=== PATIENT | male | born 1955 | race African-American/Black ===

== ENCOUNTER 2019-03-07 16:02 | Inpatient (IN) ==
--- NOTE | 2019-03-07 16:37 | Internal Med History&Physical ---
Medical - H&P: [facility] Patient information: Note initiated : 03/07/19 at 4:34 pm Service Date, if different from initiated Date: [] Patient: Kvng Hensley a 63 y/o M admitted on for hyperkalemia and acute renal failure . Chief Complaint: [] Chief complaint: Weakness, abdominal pain and fatigue History of present illness: Mr. Hensley is a 63 year old M with a known history of chronic kidney disease managed by Dr. Quinteros nephrology. Patient was in baseline state of health until a month prior to presentation started experiencing loss of appetite associated with nausea. Patient also had associated abdominal discomfort along with bloating and associated 3-4 watery diarrhea a day. Over time he got progressively weaker and has not been able to eat or drink much. With worsening symptoms he was advised for gallbladder ultrasound scheduled for today by PCP. However this morning he was so weak and fatigued that he stumbled on the way to the bathroom. He subsequently presented to [facility]. Initial work-up was consistent with hyperkalemia 6.8/acute renal failure creatinine of 3 and hy potension with pressures in 60. Patient was started on hyperkalemia protocol, received crystalloid and subsequently nephrology was consulted. His potassium recheck was higher at 7.8. Emergent HD catheter was placed and subsequently hospitalist service at [facility] was consulted for transferring patient for need of urgent hemodialysis. Patient transferred from [facility] to [facility] via ground ambulance. Signout was obtained from Dr. Fortino Contreras ER physician on phone. At the time of evaluation patient is alert and oriented. He was able to answer most of the questions. He was able to endorse history as above. He denies recent NSAID intake, dysuria, hematuria, weight loss, bloody emesis or bloody stool. He further denies rash, joint pain, headache, photophobia. He does endorse to fever and chills early this morning. He denies sick contacts Review of systems A 10 point review of system was performed and is negative except for one discussed above Medical - H&P: PMH Medical history: DM type II Hypertension Chronic kidney disease stage IIIb History of congestive heart failure-systolic History of atrial fibrillation Status post pacemaker a sensed V paced Morbid obesity Pulmonary hypertension Nonhealing ulcer lower extremity Surgical history: Pacemaker placement Family history: reviewed and not pertinent Drug use: none Alcohol use: none Medical - H&P: Meds Home Medications Medication Instructions Recorded Confirmed Type atorvastatin 20 mg tablet 40 mg PO DAILY tab 05/07/17 03/07/19 History blood sugar diagnostic See Dose Instructions .ROUTE 05/07/17 12/26/18 History .MEDSUPPLY #20 each furosemide 40 mg tablet 80 mg PO QDAY 05/07/17 03/07/19 History hydrocodone 7.5 mg-acetaminophen 1 tab PO Q6H PRN 05/07/17 03/07/19 History 325 mg tablet insulin aspart U-100 100 100 0 unit SUB-Q TID ml 05/07/17 03/07/19 History unit/mL subcutaneous solution insulin detemir U-100 100) 100 40 unit SUB-Q BID ml 05/07/17 03/07/19 History unit/mL subcutaneous solution insulin syringe-needle U-100 1 mL 1 each .ROUTE .MEDSUPPLY #10 each 05/07/17 03/07/19 History 31 gauge x 5/16" spironolactone 50 mg tablet 50 mg PO BID tab 05/07/17 03/07/19 History allopurinol 100 mg tablet 100 mg PO QDAY #30 tab 01/13/19 03/07/19 Rx allopurinol 100 mg tablet See Rx Instructions PO QDAY #30 tab 01/13/19 03/07/19 Rx [facility] [place] 03/07/19 History Apixaban [Eliquis] 5 mg PO BID 03/07/19 03/07/19 History Colchicine 1 tab PO DAILY 03/07/19 03/07/19 History Lisinopril [Zestril] 20 mg PO DAILY 03/07/19 03/07/19 History Allergies Allergy/AdvReac Type Severity Reaction Status Date / Time No Known Drug Allergies Allergy Verified 12/26/18 08:49 Medical - H&P: Exam - Constitutional General appearance: morbidly obese Exam: Fatigued but oriented and alert Head normocephalic Oral cavity dry Eye movement symmetrical No ear nose discharge Neck no lymphadenopathy S1-S2 paced rhythm regular, pacemaker left anterior chest Diminished breath sounds bases Abdomen soft nontender Lower extremity no cyanosis clubbing no joint swelling, bilateral dry excoriated skin with excessively overgrown toenail Skin no suspicious lesion Psych fatigue but cooperative Neuro nonfocal Medical - H&P: Reslt - Labs CBC & Chem 7: 03/08/19 03:36 03/08/19 03:36 Medical - H&P: A/P (1) Acute renal failure Current visit: No Status: Acute * Hypovolemic shock-continue vasopressors to keep map at goal/crystalloid bolus challenges. * Acute renal failure-etiology in question. Likely ATN secondary to volume depletion. Nephrology consulted. * Hyperkalemia not responding to hyperkalemia protocol. 7.8. HD catheter plac ed. Recheck postdialysis * Hypotension secondary to volume depletion. Rule out sepsis. Initial work-up including normal lactic acid/white count. No evidence of infection. * Abdominal pain nausea unclear etiology. Abdominal imaging * History of DM type II-continue sliding scale insulin/CC diet * History of atrial fibrillation -rate controlled. A sensed V paced * History of congestive heart failure. Per echocardiogram 2017 35% EF with dilated cardiomyopathy. Repeat echocardiogram. * Lower extremity ulcer-wound care consult * Full code * Prophylaxis heparin Plan * Inpatient admission * nephrology consult/hemodialysis * Repeat labs postdialysis * Crystalloids and pressors to maintain map at goal * Abdominal imaging * Repeat echocardiogram * Prior medical condition management home meds Time spent on history and physical in excess of 70 minutes. An additional 80 minutes critical care time spent on management of hypovolemic shock/hyperkalemia/reviewing labs imaging and care coordination
[2019-03-07] MEDS ORDERED: DEXTROSE 31 GM ORAL.SUSP PO PRN (16:52)
[2019-03-07] MEDS ORDERED: ACETAMINOPHEN 325 MG TABLET PO PRN (16:52)
[2019-03-07] MEDS ORDERED: ACETAMINOPHEN 650 MG/65 ML BOTTLE IV PRN (16:52)
[2019-03-07] MEDS ORDERED: DEXTROSE 50% 50 ML VIAL IV PRN (16:52)
[2019-03-07] MEDS ORDERED: ONDANSETRON 4 MG/2 ML VIAL IV PRN (16:52)
[2019-03-07] MEDS: 0.9 % SODIUM CHLORIDE 1,000 ML IV SCH (17:28)
[2019-03-07] MEDS: INSULIN LISPRO 1 UNIT/0.01 ML UNIT SQ SCH ×2 (17:32→21:21)
--- NOTE | 2019-03-07 19:01 | Ultrasound Report ---
CLINICAL INFORMATION: ARF COMPARISON: None. FINDINGS: There are multiple stones within the gallbladder. Gallbladder wall is normal thickness is 2 mm. Common bile duct is 5 mm. Pancreas not visualized. Aorta and IVC are unremarkable. Spleen is incompletely imaged but grossly normal. Both kidneys are normal in size, position and configuration: the right is 11 x 5 cm and the left is 11 x 6 cm. Renal echotexture is elevated compatible with mild medical renal disease IMPRESSION: Elevated renal echotexture compatible with mild medical renal disease Cholelithiasis. Interpreted and Authenticated by: Kvng Mcclendon 03/07/19
[2019-03-07 19:42] LABS: Hemoglobin A1C 7.2 % HGB (4.0-6.0)
[2019-03-07] MEDS: NOREPINEPHRINE BITARTRATE 16 MG in 0.9 % SODIUM CHLORIDE 234 ML IV SCH ×2 (20:05→21:07)
[2019-03-07] MEDS: NOREPINEPHRINE BITARTRATE 4 MG/4 ML VIAL IV ONE ×4 (20:10→21:15)
[2019-03-07] MEDS ORDERED: 0.9 % SODIUM CHLORIDE 1,000 ML IV ONE (20:13)
--- NOTE | 2019-03-07 20:34 | Consultation ---
DATE OF CONSULTATION: 03/07/2019 REFERRING PHYSICIAN: Rosalio Garcia MD REASON FOR CONSULTATION: Hyperkalemia. HISTORY OF PRESENT ILLNESS: The patient is a 63-year-old gentleman with known chronic kidney disease, stage III. His serum baseline creatinines have been ranging from 1.2 to 2.0. He presented to the [facility] with nausea, vomiting, and loss of appetite. He also had some abdominal discomfort with bloating associated with 3 to 4 watery bowel movements per day. He gotten progressively weaker and not able to eat or drink. When he was in the emergency room, he was found to be hypotensive with systolic blood pressures in the 60s. His potassium was elevated at 6.8 and he was in acute kidney injury with a serum creatinine of 3.0. After the treatment for hyperkalemia, his potassium went up to 7.8. For that reason, I was called. He had a temporary dialysis catheter placed and sent to [facility] for emergent dialysis. PAST MEDICAL HISTORY: Significant for: 1. Type 2 diabetes, longstanding with all the complications of diabetes. 2. Chronic kidney disease, stage III, baseline creatinine ranging from 1.1 to 1.5. 3. History of chronic congestive heart failure. 4. History of chronic atrial fibrillation. 5. Status post pacemaker placed in the past. 6. Obesity. 7. Pulmonary hypertension. 8. Nonhealing lower extremity ulcers. PAST SURGICAL HISTORY: Pacemaker placement. SOCIAL HISTORY: No history of drug or alcohol use. FAMILY HISTORY: Noncontributory. MEDICATIONS ON ADMISSION: He is on: 1. Atorvastatin 20 mg once daily. 2. Lasix 40 mg 1 tablet daily. 3. Hydrochlorothiazide 25 mg 1 tablet daily. 4. Insulin. 5. Lisinopril 40 mg once daily. 6. Sotalol 50 mg daily. 7. Spironolactone 50 mg daily. 8. Ergocalciferol 50,000 units once daily. 9. Colchicine 0.6 mg daily. 10. Allopurinol 100 mg daily. REVIEW OF SYSTEMS: Ten systems were reviewed and as indicated in the history of present illness. PHYSICAL EXAMINATION: GENERAL: He is arousable, but falls asleep, fatigued. Oriented x2. HEENT: NC/AT. Pupils are reactive to light. Oral cavity appears normal. NECK: Supple. No jugular venous distention. No lymphadenopathy. No thyromegaly. LUNGS: Decreased air entry bilaterally. No rales or rhonchi heard. CARDIAC: S1, S2 heard. No S3, S4. No murmurs. No rubs. ABDOMEN: Soft, slightly distended, positive bowel sounds. No mass, no rebound. EXTREMITIES: Did not show any evidence of edema. Difficult to palpate his dorsalis pedis and posterior tibials. No skin rash or joint swellings noted. NEUROLOGIC: Exam is nonfocal. LABORATORY DATA: The labs from here are still pending, but the labs from [place] showed potassium of 7.8 and a creatinine of 3.0. ASSESSMENT AND PLAN: 1. Hyperkalemia secondary to acute tubular necrosis, spironolactone and lisinopril. Even with the medical therapy, this has not improved. For that reason, urgent hemodialysis will be performed. He will be dialyzed with a potassium of 1.0 and we will recheck it after 3 hours. 2. Acute kidney injury secondary to ATN from hypotension. Whether it is septic or just volume depletion, it is unclear. Most likely septic as his creatinine is elevated. He will not take any fluid during dialysis. 3. Hypertension, now he has hypotension. We will recheck the labs later today and reassess. Than you Dr. Garcia for referring this patient for consultation. I will follow with you. VICKY:[email or web address] Job ID: [id number] Doc ID: [id number] Nash Quinteros MD
[2019-03-07] MEDS ORDERED: 0.9 % SODIUM CHLORIDE 500 ML IV ONE (21:37)
[2019-03-07] MEDS: 0.9 % SODIUM CHLORIDE 10 ML SYRINGE IV SCH (22:19)
[2019-03-07] MEDS: HEPARIN 5,000 UNIT/ML VIAL SQ SCH (22:27)
[2019-03-07] MEDS: DOCUSATE SODIUM 100 MG CAPSULE PO SCH (22:28)
[2019-03-07] MEDS: CYANOCOBALAMIN (VITAMIN B-12) 500 MCG TABLET PO SCH (22:28)
[2019-03-07] MEDS: SENNOSIDES/DOCUSATE SODIUM 1 TAB TABLET PO SCH (22:28)
[2019-03-07] MEDS: MELATONIN 3 MG TABLET PO PRN (22:28)
[2019-03-07] MEDS: 0.9 % SODIUM CHLORIDE 250 ML IV SCH (22:32)
[2019-03-08] MEDS ORDERED: AMIODARONE HCL 200 MG TABLET PO ONE (00:11)
[2019-03-08] MEDS ORDERED: AMIODARONE HCL 200 MG TABLET ONE (00:18)
[2019-03-08] MEDS: 0.9 % SODIUM CHLORIDE 1,000 ML IV SCH ×2 (03:29→13:46)
[2019-03-08 05:51] LABS: Hematocrit 37.5 % (41.0-55.0); Hemoglobin 12.3 g/dL (13.5-16.5); Mean Cell Volume 85.7 fL (80.0-100.0); Mean Corpuscular HGB Conc 32.7 g/dL (31.0-36.0); Mean Platelet Volume 8.5 fL (7.4-10.4); Platelet Count 228 K/mcL (140-440); RBC 4.37 M/mcL (4.50-5.90); Red Cell Distribution Width 14.8 % (11.5-14.5); WBC 7.7 K/mcL (4.5-11.0)
[2019-03-08 06:02] LABS: ALT/SGPT 15 U/l (0-40); AST/SGOT 18 U/l (0-37); Albumin 3.3 gm/dL (3.2-5.2); Albumin/Globulin Ratio 1.2 (1.0-2.3); Alkaline Phosphatase 57 U/L (39-117); Bilirubin,Direct < 0.2 mg/dL (0.0-0.3); Bilirubin,Total 0.6 mg/dL (0.0-1.0); Blood Urea Nitrogen 35 mg/dl (8-23); Calcium 7.8 mg/dl (8.6-10.4); Carbon Dioxide 19 mmol/L (22-30); Chloride 106 mmol/L (96-108); Globulin 2.7 gm/dL (2.2-3.7); Glomerular Filtration Rate 29; Glucose 170 mg/dL (70-105); Lactate Dehydrogenase 163 U/L (94-250); Phosphorous 2.5 mg/dL (2.7-4.5); Triglycerides 97 mg/dl (<150); Uric Acid 1.9 mg/dL (2.5-8.0)
[2019-03-08 07:10] LABS: Eosinophils % (Manual) 4 % (0-7); Lymphocytes % 34 % (15-49); Monocytes % (Manual) 6 % (1-12); Platelet Estimate NORMAL (NORMAL); RBC Morphology NORMAL (NORMAL); Segmented Neutrophils % 56 % (38-78)
[2019-03-08] MEDS: 0.9 % SODIUM CHLORIDE 10 ML SYRINGE IV SCH ×3 (07:47→22:00)
[2019-03-08] MEDS: INSULIN LISPRO 1 UNIT/0.01 ML UNIT SQ SCH ×4 (07:51→20:41)
[2019-03-08] MEDS: CYANOCOBALAMIN (VITAMIN B-12) 500 MCG TABLET PO SCH ×2 (09:20→20:15)
[2019-03-08] MEDS: FOLIC ACID 1 MG TABLET PO SCH (09:20)
[2019-03-08] MEDS: DOCUSATE SODIUM 100 MG CAPSULE PO SCH ×2 (09:20→20:15)
[2019-03-08] MEDS: THIAMINE 100 MG TABLET PO SCH (09:20)
[2019-03-08] MEDS: MULTIVIT,THER IRON,CA,FA & MIN 1 TABLET PO SCH (09:20)
[2019-03-08] MEDS: HEPARIN 5,000 UNIT/ML VIAL SQ SCH (09:20)
[2019-03-08] MEDS: 0.9 % SODIUM CHLORIDE 250 ML IV SCH ×2 (09:32→20:50)
--- NOTE | 2019-03-08 10:43 | Internal Med Progress Note ---
Medical - PN: Subj Patient information: Note initiated : 03/08/19 at 10:40 am Service Date, if different from initiated Date: [] Patient: Kvng Hensley a 63 y/o M admitted on 03/07/19 for hyperkalemia and acute renal failure . Chief Complaint: [] Interval history: Mr. Hensley is a 63 year old M with a known history of chronic kidney disease managed by Dr. Quinteros nephrology. Patient was in baseline state of health until a month prior to presentation started experiencing loss of appetite associated with nausea. Patient also had associated abdominal discomfort along with bloating and associated 3-4 watery diarrhea a day. Over time he got progressively weaker and has not been able to eat or drink much. With wors ening symptoms he was advised for gallbladder ultrasound scheduled for today by PCP. However this morning he was so weak and fatigued that he stumbled on the way to the bathroom. He subsequently presented to [place] [facility]. Initial work-up was consistent with hyperkalemia 6.8/acute renal failure creatinine of 3 and hypotension with pressures in 60. Patient was started on hyperkalemia protocol, received crystalloid and subsequently nephrology was consulted. His potassium recheck was higher at 7.8. Emergent HD catheter was placed and subsequently hospitalist service at [facility] was consulted for transferring patient for need of urgent hemodialysis. Patient transferred from [facility] to [facility] via ground ambulance. Signout was obtained from Dr. Fortino Contreras ER physician on phone. At the time of evaluation patient is alert and oriented. He was able to answer most of the questions. He was able to endorse history as above. He denies recent NSAID intake, dysuria, hematuria, weight loss, bloody emesis or bloody stool. He further denies rash, joint pain, headache, photophobia. He does endorse to fever and chills early this morning. He denies sick contacts 03/08-patient overnight remained on pressors with crystalloid challenges to maintain map at goal. Post hemodialysis potassium improved to 4.8. Satisfactory urine output. Weaning vasopressors. Multiple runs of V. tach last night with spontaneous defibrillator discharge. Creatinine 2.3 BUN 35. Continue monitor renal function. Nephrology on board. - Constitutional Vitals: Vital Signs Temp Pulse Resp BP Pulse Ox 97 F 75 21 107/91 99 03/07/19 23:00 03/08/19 06:01 03/08/19 08:24 03/08/19 08:24 03/08/19 06:01 Period Temp Pulse Resp BP Sys/Rush Pulse Ox Last 24 Hr 97 F-98 F 39-90 13-27 69-178/37-114 85-100 Intake and Output 03/07/19 03/08/19 03/08/19 21:59 05:59 13:59 Intake Total 2023 538 480 Output Total 350 200 400 Balance 1674 338 80 Weight 272 lb 8 oz Intake & Output: Intake & Output 03/07/19 03/08/19 03/08/19 21:59 05:59 13:59 Intake Total 2023 538 480 Output Total 350 200 400 Balance 1674 338 80 Weight 272 lb 8 oz Intake: IV 2023 538 Sodium Chloride 0.9% 1,000 ml @ 2000 Wide Open IV BOLUS ONE Rx#: [id number] Sodium Chloride 0.9% 500 ml @ 500 Wide Open IV BOLUS ONE Rx#: [id number] Levophed 16 mg In Sodium 24 38 Chloride 0.9% 234 ml @ 10 MCG/ MIN 9.375 mls/hr IV Q24H [facility] Rx #:[id number] Oral 480 Output: Void Amount 350 200 400 Hemodialysis UF 0 Other: Meal Breakfast Percent of Meal Consumed 100% Urine Appearance Clear Clear Urine Color Bright Yellow Bright Yellow General appearance: no acute distress Exam: Currently on pressors Alert and oriented Systolics around mid 90s No lymphedema Paced rhythm on cafeteria monitor Medical - PN: Obj Da - Labs CBC & Chem 7: 03/08/19 03:36 03/08/19 03:36 Labs: Abnormal Lab Results 03/08/19 03/08/19 03/07/19 03:36 03:36 18:24 RBC 4.37 L Hgb 12.3 L Hct 37.5 L RDW 14.8 H Carbon Dioxide 19 L BUN 35 H Creatinine 2.3 H Glucose 170 H Hemoglobin A1c 7.2 H Uric Acid 1.9 L Calcium 7.8 L Phosphorus 2.5 L Meds: Medications Acetaminophen (Tylenol) 650 mg PO Q4-6HP PRN; Protocol PRN Reason: Per Pain Protocol/Fever > 101 Cyanocobalamin (Vitamin B-12) 1,000 mcg PO BID [facility] Stop: 03/12/19 09:01 Last Admin: 03/08/19 09:20 Dose: 1,000 mcg Documented by: Dextrose (Dextrose 50%) 0 ml IV UD PRN PRN Reason: Hypoglycemia Diagnostic Test (Pha) (Accu-Chek) 1 each FS ACHS [facility] Last Admin: 03/08/19 07:45 Dose: 1 each Documented by: Docusate Sodium (Colace) 100 mg PO BID [facility] Last Admin: 03/08/19 09:20 Dose: Not Given Documented by: Folic Acid (Folic Acid) 1 mg PO DAILY [facility] Last Admin: 03/08/19 09:20 Dose: 1 mg Documented by: Glucose (Insta-Glucose) 15 gm PO PRN PRN PRN Reason: Hypoglycemia Heparin Sodium (Porcine) (Heparin) 5,000 unit SQ Q12 [facility] Last Admin: 03/08/19 09:20 Dose: 5,000 unit Documented by: Sodium Chloride (Sodium Chloride 0.9%) 1,000 mls @ 100 mls/hr IV .Q10H [facility] Last Admin: 03/08/19 03:29 Dose: 100 mls/hr Documented by: Acetaminophen (Ofirmev) 650 mg in 65 mls @ 130 mls/hr IV Q6HP PRN; Protocol PRN Reason: Per Pain Protocol/Fever > 101 Norepinephrine Bitartrate 16 (mg/ Sodium Chloride) 250 mls @ 9.375 mls/hr IV Q24H [facility]; Protocol Last Titration: 03/08/19 01:31 Dose: 5 mcg/min, 4.688 mls/hr Documented by: Sodium Chloride (Sodium Chloride 0.9%) 250 mls @ 20 mls/hr IV .[id number] [facility] Last Admin: 03/08/19 09:32 Dose: Not Given Documented by: Insulin Human Lispro (Humalog) 0 unit SQ ACHS [facility]; Protocol Last Admin: 03/08/19 07:51 Dose: 1 units Documented by: Iron Carb/Multivit/[place]/Folic Acid (Multivitamin W/Minerals) 1 tab PO DAILY [facility] Last Admin: 03/08/19 09:20 Dose: 1 tab Documented by: Melatonin (Melatonin 3mg Tablet) 3 mg PO HSP PRN PRN Reason: Insomnia Last Admin: 03/07/19 22:28 Dose: 3 mg Documented by: Ondansetron HCl (Zofran) 4 mg IV Q4-6HP PRN; Protocol PRN Reason: Nausea And Vomiting Pneumococcal Polyvalent Vaccine (Pneumovax 23) 0.5 ml IM .ONCE ONE Stop: 03/09/19 10:16 Senna/Docusate Sodium (Senna Plus Tablet) 1 tab PO HS [facility] Last Admin: 03/07/19 22:28 Dose: 1 tab Documented by: Sodium Chloride (Saline Flush) 10 ml IV Q8 [facility] Last Admin: 03/08/19 07:47 Dose: 10 ml Documented by: Thiamine HCl (Vitamin B1) 100 mg PO DAILY [facility] Last Admin: 03/08/19 09:20 Dose: 100 mg Documented by: Medical - PN: A/P - Time Spent With Patient Total time spent is greater than 50% in coordination of care (as documented) at patient's floor/unit and/or counseling patient: Greater than 35 minutes (Critical care time) (1) Acute renal failure Status: Acute Assessment and plan: * Hypovolemic shock-continue crystalloids and vasopressors to keep map at goal. Gradual improvement noted. Improved endorgan dysfunction. Initial work-up including normal lactic acid/white count. No evidence of infection. * Acute renal failure-etiology in question. Likely secondary to volume depletion/ischemic ATN . Ongoing hemodialysis. Nephrology on board. * Life-threatening hyperkalemia-postdialysis potassium down from 7.8-4.8 * Abdominal pain clinically resolved. Abdominal imaging no evidence of acute process. * History of DM type II-continue basal prandial insulin/CC diet * History of atrial fibrillation -rate controlled. A sensed V paced. Anticoagulated on apixaban * Intermittent V. tach status post spontaneous defibrillator discharge. Currently on amiodarone. * History of dilated cardiomyopathy with EF 35%. Repeat echo. hold SERGEY inhibitor/spironolactone until shock resolves. * Lower extremity ulcer-wound care consult * History of gout continue allopurinol/colchicine * Hyperlipidemia continue statin * * Full code * Prophylaxis apixaban Plan * Continue ICU care * Crystalloids and vasopressors * Monitor renal function * Repeat labs postdialysis * Hold spironolactone/SERGEY inhibitor until shock resolves * Await echocardiogram * Prior medical condition management home meds Critical care time spent 35 minutes Current Visit: No Medical - PN: Qual - VTE Deep Vein Thrombosis/Pulmonary Embolism Present on Admission: No
[2019-03-08] MEDS ORDERED: [UNRECOGNIZED DRUG - OTHER] SCH (10:45)
[2019-03-08] MEDS ORDERED: INSULIN SCH (10:45)
[2019-03-08] MEDS: APIXABAN 5 MG TABLET PO SCH (20:15)
[2019-03-08] MEDS: SENNOSIDES/DOCUSATE SODIUM 1 TAB TABLET PO SCH (20:15)
[2019-03-08] MEDS: MELATONIN 3 MG TABLET PO PRN (20:15)
[2019-03-08] MEDS: NOREPINEPHRINE BITARTRATE 16 MG in 0.9 % SODIUM CHLORIDE 234 ML IV SCH (20:38)
[2019-03-08] MEDS: INSULIN GLARGINE, HUMAN 1 UNIT/0.01 ML SQ SCH (20:43)
[2019-03-08] MEDS ORDERED: SPIRONOLACTONE 50 MG PO SCH (21:00)
[2019-03-09] MEDS: 0.9 % SODIUM CHLORIDE 1,000 ML IV SCH ×3 (00:04→20:26)
[2019-03-09] MEDS: 0.9 % SODIUM CHLORIDE 10 ML SYRINGE IV SCH ×4 (06:01→21:33)
[2019-03-09] MEDS: INSULIN LISPRO 1 UNIT/0.01 ML UNIT SQ SCH ×4 (09:00→20:50)
[2019-03-09] MEDS ORDERED: ALLOPURINOL 100 MG TABLET PO SCH (09:00)
[2019-03-09] MEDS: APIXABAN 5 MG TABLET PO SCH ×2 (09:00→20:49)
[2019-03-09] MEDS ORDERED: COLCHICINE PO SCH (09:00)
[2019-03-09] MEDS: DOCUSATE SODIUM 100 MG CAPSULE PO SCH ×2 (09:00→20:51)
[2019-03-09] MEDS ORDERED: LISINOPRIL 20 MG TABLET PO SCH (09:00)
[2019-03-09] MEDS: AMIODARONE HCL 200 MG TABLET PO SCH (09:00)
[2019-03-09] MEDS ORDERED: FUROSEMIDE 40 MG TABLET PO SCH (09:00)
[2019-03-09] MEDS: FOLIC ACID 1 MG TABLET PO SCH (09:00)
[2019-03-09] MEDS: INSULIN GLARGINE, HUMAN 1 UNIT/0.01 ML SQ SCH ×2 (09:01→21:12)
[2019-03-09] MEDS: CYANOCOBALAMIN (VITAMIN B-12) 500 MCG TABLET PO SCH ×2 (09:01→20:51)
[2019-03-09] MEDS: ATORVASTATIN 20 MG TABLET PO SCH (09:01)
[2019-03-09] MEDS: MULTIVIT,THER IRON,CA,FA & MIN 1 TABLET PO SCH (09:01)
[2019-03-09] MEDS: ALLOPURINOL 100 MG TABLET PO SCH (09:02)
[2019-03-09] MEDS: HYDROCODONE/APAP 7.5/325MG TABLET PO PRN ×2 (09:02→16:26)
[2019-03-09] MEDS: THIAMINE 100 MG TABLET PO SCH (09:02)
[2019-03-09] MEDS: 0.9 % SODIUM CHLORIDE 250 ML IV SCH ×2 (09:03→22:50)
[2019-03-09 09:59] LABS: Hematocrit 34.4 % (41.0-55.0); Hemoglobin 11.3 g/dL (13.5-16.5); Mean Corpuscular HGB Conc 32.7 g/dL (31.0-36.0); Mean Platelet Volume 8.5 fL (7.4-10.4); Platelet Count 198 K/mcL (140-440); WBC 6.2 K/mcL (4.5-11.0)
[2019-03-09] MEDS ORDERED: FLU VACC QS2019-20(6MOS UP)/PF 60 MCG/0.5 ML SYRINGE IM ONE (10:00)
[2019-03-09 10:09] LABS: ALT/SGPT 11 U/l (0-40); AST/SGOT 14 U/l (0-37); Albumin 3.5 gm/dL (3.2-5.2); Albumin/Globulin Ratio 1.5 (1.0-2.3); Alkaline Phosphatase 57 U/L (39-117); Bilirubin,Direct < 0.2 mg/dL (0.0-0.3); Bilirubin,Total 0.5 mg/dL (0.0-1.0); Blood Urea Nitrogen 37 mg/dl (8-23); Calcium 7.3 mg/dl (8.6-10.4); Carbon Dioxide 21 mmol/L (22-30); Chloride 110 mmol/L (96-108); Globulin 2.4 gm/dL (2.2-3.7); Glomerular Filtration Rate 37; Glucose 116 mg/dL (70-105); Lactate Dehydrogenase 157 U/L (94-250); Phosphorous 1.5 mg/dL (2.7-4.5); Triglycerides 103 mg/dl (<150); Uric Acid 2.4 mg/dL (2.5-8.0)
[2019-03-09] MEDS ORDERED: PNEUMOCOCCAL 23-VAL P-SAC VAC 0.5 ML SYRINGE IM ONE (10:15)
[2019-03-09 10:29] LABS: Eosinophils % (Manual) 4 % (0-7); Lymphocytes % 33 % (15-49); Monocytes % (Manual) 10 % (1-12); Platelet Estimate NORMAL (NORMAL); RBC Morphology NORMAL (NORMAL); Segmented Neutrophils % 53 % (38-78)
[2019-03-09] MEDS ORDERED: SODIUM POLYSTYRENE SULFONATE 15 GM/60 ML SUSPENSION PO ONE (14:15)
[2019-03-09] MEDS: NOREPINEPHRINE BITARTRATE 16 MG in 0.9 % SODIUM CHLORIDE 234 ML IV SCH (20:26)
--- NOTE | 2019-03-09 20:50 | Internal Med Progress Note ---
Medical - PN: Subj Patient information: Note initiated : 03/09/19 at 8:46 pm Service Date, if different from initiated Date: [] Patient: Kvng Hensley a 63 y/o M admitted on 03/07/19 for hyperkalemia and acute renal failure . Chief Complaint: [] Interval history: Mr. Hensley is a 63 year old M with a known history of chronic kidney disease managed by Dr. Quinteros nephrology. Patient was in baseline state of health until a month prior to presentation started experiencing loss of appetite associated with nausea. Patient also had associated abdominal discomfort along with bloating and associated 3-4 watery diarrhea a day. Over time he got progressively weaker and has not been able to eat or drink much. With worse jossie symptoms he was advised for gallbladder ultrasound scheduled for today by PCP. However this morning he was so weak and fatigued that he stumbled on the way to the bathroom. He subsequently presented to [place]. Initial work-up was consistent with hyperkalemia 6.8/acute renal failure creatinine of 3 and hypotension with pressures in 60. Patient was started on hyperkalemia protocol, received crystalloid and subsequently nephrology was consulted. His potassium recheck was higher at 7.8. Emergent HD catheter was placed and subsequently hospitalist service at [facility] was consulted for transferring patient for need of urgent hemodialysis. Patient transferred from [facility] to [facility] via ground ambulance. Signout was obtained from Dr. Fortino Contreras ER physician on phone. At the time of evaluation patient is alert and oriented. He was able to answer most of the questions. He was able to endorse history as above. He denies recent NSAID intake, dysuria, hematuria, weight loss, bloody emesis or bloody stool. He further denies rash, joint pain, headache, photophobia. He does endorse to fever and chills early this morning. He denies sick contacts 03/08-patient overnight remained on pressors with crystalloid challenges to maintain map at goal. Post hemodialysis potassium improved to 4.8. Satisfactory urine output. Weaning vasopressors. Multiple runs of V. tach last night with spontaneous defibrillator discharge. Creatinine 2.3 BUN 35. Continue monitor renal function. Nephrology on board. 03/09- Doing a lot better. off pressors, Cr stable now down to 1.9. K uptrending at 5.6. Nehrology on board, good urine output. Phosphorus 1.5. No fever chi lls or telemetry events. - Constitutional Vitals: Vital Signs Temp Pulse Resp BP Pulse Ox 97.6 F 75 18 104/72 98 03/09/19 16:01 03/09/19 20:00 03/09/19 20:00 03/09/19 20:00 03/09/19 20:00 Period Temp Pulse Resp BP Sys/Rush Pulse Ox Last 24 Hr 97.6 F-98.2 F 70-77 14-27 88-158/60-142 96-100 Intake and Output 03/09/19 03/09/19 03/09/19 05:59 13:59 21:59 Intake Total 1008 1120 1480 Output Total 500 275 250 Balance 416 751 5278 Intake & Output: Intake & Output 03/09/19 03/09/19 03/09/19 05:59 13:59 21:59 Intake Total 1008 1120 1480 Output Total 500 275 250 Balance 030 647 0736 Intake: Nourishment/Supplement quantity 120 (ml) IV 1008 1000 1000 Sodium Chloride 0.9% 1,000 ml @ 1000 1000 1000 100 mls/hr IV .Q10H [facility] Rx#: [id number] Levophed 16 mg In Sodium 8 Chloride 0.9% 234 ml @ 10 MCG/ MIN 9.375 mls/hr IV Q24H [facility] Rx #:[id number] Oral 120 360 Output: Void Amount 500 275 250 Other: Meal Breakfast Dinner Percent of Meal Consumed 100% 100% Feeding Ability Independent Urine Appearance Clear Clear Urine Color Bright Yellow Bright Yellow Pale Urine Odor Strong Stool Size Moderate Stool Color Brown Green Stool Consistency Soft # Voids 1 # Bowel Movements 1 General appearance: no acute distress Exam: A&O non laobered breathing No Lymphededma CTAB Tele paced rhythm Medical - PN: Obj Da - Labs CBC & Chem 7: 03/10/19 04:00 03/10/19 04:00 Labs: Abnormal Lab Results 03/09/19 03/09/19 03/08/19 07:40 07:40 03:36 RBC 4.00 L Hgb 11.3 L Hct 34.4 L RDW 15.0 H Potassium 5.6 H Chloride 110 H Carbon Dioxide 21 L 19 L Anion Gap 6.0 L BUN 37 H 35 H Creatinine 1.9 H 2.3 H Glucose 116 H 170 H Hemoglobin A1c Uric Acid 2.4 L 1.9 L Calcium 7.3 L 7.8 L Phosphorus 1.5 L 2.5 L Magnesium 1.5 L 03/08/19 03/07/19 03:36 18:24 RBC 4.37 L Hgb 12.3 L Hct 37.5 L RDW 14.8 H Potassium Chloride Carbon Dioxide Anion Gap BUN Creatinine Glucose Hemoglobin A1c 7.2 H Uric Acid Calcium Phosphorus Magnesium Meds: Medications Acetaminophen (Tylenol) 650 mg PO Q4-6HP PRN; Protocol PRN Reason: Per Pain Protocol/Fever > 101 Hydrocodone Bitart/Acetaminophen ([place] 7.5/325mg) 1 tab PO Q6HP PRN; Protocol PRN Reason: Pain Last Admin: 03/09/19 16:26 Dose: 1 tab Documented by: Allopurinol (Zyloprim) 400 mg PO DAILY [facility] Last Admin: 03/09/19 09:02 Dose: 400 mg Documented by: Amiodarone HCl (Cordarone) 200 mg PO [facility] Last Admin: 03/09/19 09:00 Dose: 200 mg Documented by: Apixaban (Eliquis) 5 mg PO BID [facility] Last Admin: 03/09/19 09:00 Dose: 5 mg Documented by: Atorvastatin Calcium (Lipitor) 40 mg PO DAILY [facility] Last Admin: 03/09/19 09:01 Dose: 40 mg Documented by: Cyanocobalamin (Vitamin B-12) 1,000 mcg PO BID [facility] Stop: 03/12/19 09:01 Last Admin: 03/09/19 09:01 Dose: 1,000 mcg Documented by: Dextrose (Dextrose 50%) 0 ml IV UD PRN PRN Reason: Hypoglycemia Diagnostic Test (Pha) (Accu-Chek) 1 each FS ACHS [facility] Last Admin: 03/09/19 20:26 Dose: 1 each Documented by: Docusate Sodium (Colace) 100 mg PO BID [facility] Last Admin: 03/09/19 09:00 Dose: Not Given Documented by: Folic Acid (Folic Acid) 1 mg PO DAILY [facility] Last Admin: 03/09/19 09:00 Dose: 1 mg Documented by: Glucose (Insta-Glucose) 15 gm PO PRN PRN PRN Reason: Hypoglycemia Sodium Chloride (Sodium Chloride 0.9%) 1,000 mls @ 100 mls/hr IV .Q10H [facility] Last Admin: 03/09/19 20:26 Dose: 100 mls/hr Documented by: Acetaminophen (Ofirmev) 650 mg in 65 mls @ 130 mls/hr IV Q6HP PRN; Protocol PRN Reason: Per Pain Protocol/Fever > 101 Norepinephrine Bitartrate 16 (mg/ Sodium Chloride) 250 mls @ 9.375 mls/hr IV Q24H [facility]; Protocol Last Admin: 03/09/19 20:26 Dose: Not Given Documented by: Sodium Chloride (Sodium Chloride 0.9%) 250 mls @ 20 mls/hr IV .[id number] [facility] Last Admin: 03/09/19 09:03 Dose: Not Given Documented by: Insulin Glargine (Lantus) 40 unit SQ BID [facility] Last Admin: 03/09/19 09:01 Dose: 40 units Documented by: Insulin Human Lispro (Humalog) 0 unit SQ ACHS [facility]; Protocol Last Admin: 03/09/19 18:01 Dose: 2 unit Documented by: Iron Carb/Multivit/[employer]/Folic Acid (Multivitamin W/Minerals) 1 tab PO DAILY [facility] Last Admin: 03/09/19 09:01 Dose: 1 tab Documented by: Melatonin (Melatonin 3mg Tablet) 3 mg PO HSP PRN PRN Reason: Insomnia Last Admin: 03/08/19 20:15 Dose: 3 mg Documented by: Ondansetron HCl (Zofran) 4 mg IV Q4-6HP PRN; Protocol PRN Reason: Nausea And Vomiting Senna/Docusate Sodium (Senna Plus Tablet) 1 tab PO HS [facility] Last Admin: 03/08/19 20:15 Dose: 1 tab Documented by: Sodium Chloride (Saline Flush) 10 ml IV Q8 [facility] Last Admin: 03/09/19 14:45 Dose: 10 ml Documented by: Thiamine HCl (Vitamin B1) 100 mg PO DAILY [facility] Last Admin: 03/09/19 09:02 Dose: 100 mg Documented by: Medical - PN: A/P - Time Spent With Patient Total time spent is greater than 50% in coordination of care (as documented) at patient's floor/unit and/or counseling patient: 25 - 35 minutes (1) Acute renal failure Status: Acute Assessment and plan: * Hypovolemic shock-continue crystalloids and vasopressors to keep map at goal. Gradual improvement noted. Improved endorgan dysfunction. Initial work-up including normal lactic acid/white count. No evidence of infection. * Acute renal failure-Improving with stabilization of creatinine downtrending spontaneously from 2.3-1.9. S/p HD 03/08 for hyperkalemia. Nephrology on board. * Hyperkalemia-potassium uptrending and now at 5.6. Nephrology on board. * Abdominal pain clinically resolved. Abdominal imaging no evidence of acute process. * History of DM type II-continue basal prandial insulin/CC diet * History of atrial fibrillation -rate controlled. A sensed V paced. Anticoagulated on apixaban * Intermittent V. tach status post spontaneous defibrillator discharge. Currently on amiodarone. * History of dilated cardiomyopathy with EF 35%. Repeat echo EF 30%. hold SERGEY inhibitor/spironolactone until shock resolves. * Lower extremity ulcer-wound care consult * History of gout continue allopurinol/colchicine * Hyperlipidemia continue statin * Full code * Prophylaxis apixaban Plan * Repeat a.m. labs * Hold spironolactone/SERGEY inhibitor * Hyperkalemia management per nephrology * Continue wound care * Prior medical condition management home meds Critical care time spent 35 minutes Current Visit: No Medical - PN: Qual - VTE Deep Vein Thrombosis/Pulmonary Embolism Present on Admission: No
[2019-03-09] MEDS: SENNOSIDES/DOCUSATE SODIUM 1 TAB TABLET PO SCH (20:51)
[2019-03-10] MEDS: 0.9 % SODIUM CHLORIDE 1,000 ML IV SCH ×4 (05:03→23:47)
[2019-03-10] MEDS: 0.9 % SODIUM CHLORIDE 10 ML SYRINGE IV SCH ×3 (05:04→21:48)
[2019-03-10 05:51] LABS: Hematocrit 34.3 % (41.0-55.0); Hemoglobin 11.3 g/dL (13.5-16.5); Mean Cell Volume 86.1 fL (80.0-100.0); Mean Corpuscular HGB Conc 32.9 g/dL (31.0-36.0); Mean Platelet Volume 8.4 fL (7.4-10.4); Platelet Count 200 K/mcL (140-440); RBC 3.99 M/mcL (4.50-5.90); Red Cell Distribution Width 15.2 % (11.5-14.5); WBC 6.2 K/mcL (4.5-11.0)
[2019-03-10] MEDS: HYDROCODONE/APAP 7.5/325MG TABLET PO PRN ×3 (05:57→16:18)
[2019-03-10 07:15] LABS: ALT/SGPT 12 U/l (0-40); AST/SGOT 15 U/l (0-37); Albumin 3.5 gm/dL (3.2-5.2); Albumin/Globulin Ratio 1.1 (1.0-2.3); Alkaline Phosphatase 63 U/L (39-117); Bilirubin,Direct < 0.2 mg/dL (0.0-0.3); Bilirubin,Total 0.4 mg/dL (0.0-1.0); Blood Urea Nitrogen 35 mg/dl (8-23); Calcium 7.2 mg/dl (8.6-10.4); Carbon Dioxide 19 mmol/L (22-30); Chloride 111 mmol/L (96-108); Globulin 3.1 gm/dL (2.2-3.7); Glomerular Filtration Rate 42; Glucose 95 mg/dL (70-105); Lactate Dehydrogenase 183 U/L (94-250); Phosphorous 2.2 mg/dL (2.7-4.5); Triglycerides 85 mg/dl (<150); Uric Acid 2.5 mg/dL (2.5-8.0)
[2019-03-10] MEDS ORDERED: fentaNYL 100 MCG/2 ML VIAL IV PRN (07:33)
[2019-03-10 09:37] LABS: Eosinophils % (Manual) 6 % (0-7); Lymphocytes % 21 % (15-49); Monocytes % (Manual) 13 % (1-12); Nucleated Red Blood Cells 1 % (0-0); Platelet Estimate NORMAL (NORMAL); RBC Morphology NORMAL (NORMAL); Segmented Neutrophils % 60 % (38-78)
[2019-03-10] MEDS: INSULIN LISPRO 1 UNIT/0.01 ML UNIT SQ SCH ×4 (10:05→20:37)
[2019-03-10] MEDS: DOCUSATE SODIUM 100 MG CAPSULE PO SCH ×2 (10:06→20:24)
[2019-03-10] MEDS: INSULIN GLARGINE, HUMAN 1 UNIT/0.01 ML SQ SCH ×2 (10:06→20:33)
[2019-03-10] MEDS: AMIODARONE HCL 200 MG TABLET PO SCH (10:06)
[2019-03-10] MEDS: FOLIC ACID 1 MG TABLET PO SCH (10:06)
[2019-03-10] MEDS: APIXABAN 5 MG TABLET PO SCH ×2 (10:06→20:04)
[2019-03-10] MEDS: MULTIVIT,THER IRON,CA,FA & MIN 1 TABLET PO SCH (10:07)
[2019-03-10] MEDS: THIAMINE 100 MG TABLET PO SCH (10:07)
[2019-03-10] MEDS: CYANOCOBALAMIN (VITAMIN B-12) 500 MCG TABLET PO SCH ×2 (10:07→20:02)
[2019-03-10] MEDS: ATORVASTATIN 20 MG TABLET PO SCH (10:07)
[2019-03-10] MEDS: ALLOPURINOL 100 MG TABLET PO SCH (10:08)
--- NOTE | 2019-03-10 10:26 | Internal Med Progress Note ---
Medical - PN: Subj Patient information: Note initiated : 03/10/19 at 10:23 am Service Date, if different from initiated Date: [] Patient: Kvng Hensley a 63 y/o M admitted on 03/07/19 for hyperkalemia and acute renal failure . Chief Complaint: [] Interval history: Mr. Hensley is a 63 year old M with a known history of chronic kidney disease managed by Dr. Quinteros nephrology. Patient was in baseline state of health until a month prior to presentation started experiencing loss of appetite associated with nausea. Patient also had associated abdominal discomfort along with bloating and associated 3-4 watery diarrhea a day. Over time he got progressively weaker and has not been able to eat or drink much. With wors ening symptoms he was advised for gallbladder ultrasound scheduled for today by PCP. However this morning he was so weak and fatigued that he stumbled on the way to the bathroom. He subsequently presented to [place] [facility]. Initial work-up was consistent with hyperkalemia 6.8/acute renal failure creatinine of 3 and hypotension with pressures in 60. Patient was started on hyperkalemia protocol, received crystalloid and subsequently nephrology was consulted. His potassium recheck was higher at 7.8. Emergent HD catheter was placed and subsequently hospitalist service at [facility] was consulted for transferring patient for need of urgent hemodialysis. Patient transferred from [facility] to [facility] via ground ambulance. Signout was obtained from Dr. Fortino Contreras ER physician on phone. At the time of evaluation patient is alert and oriented. He was able to answer most of the questions. He was able to endorse history as above. He denies recent NSAID intake, dysuria, hematuria, weight loss, bloody emesis or bloody stool. He further denies rash, joint pain, headache, photophobia. He does endorse to fever and chills early this morning. He denies sick contacts 03/08-patient overnight remained on pressors with crystalloid challenges to maintain map at goal. Post hemodialysis potassium improved to 4.8. Satisfactory urine output. Weaning vasopressors. Multiple runs of V. tach last night with spontaneous defibrillator discharge. Creatinine 2.3 BUN 35. Continue monitor renal function. Nephrology on board. 03/09- Doing a lot better. off pressors, Cr stable now down to 1.9. K uptrending at 5.6. Nehrology on board, good urine output. Phosphorus 1.5. No fever ch ills or telemetry events. 03/10-patient complains of severe nausea after Kayexalate administration for hyperkalemia. Potassium down to 5.4. Creatinine improving to 1.7. Complains of nausea. Systolics around 90s but off pressors. Ongoing physical therapy. Is slightly lightheaded. Complains of right knee pain 8 out of 10. Tolerating diet. No family at bedside - Constitutional Vitals: Vital Signs Temp Pulse Resp BP Pulse Ox 97.8 F 75 18 116/91 96 03/10/19 08:01 03/10/19 04:00 03/10/19 08:08 03/10/19 08:01 03/10/19 04:00 Period Temp Pulse Resp BP Sys/Rush Pulse Ox Last 24 Hr 97.6 F-98.4 F 72-77 14-24 94-164/65-130 96-100 Intake and Output 03/09/19 03/10/19 03/10/19 21:59 05:59 13:59 Intake Total 1480 1063 Output Total 450 175 350 Balance 1030 -175 713 Weight 292 lb 4.8 oz Intake & Output: Intake & Output 03/09/19 03/10/19 03/10/19 21:59 05:59 13:59 Intake Total 1480 1063 Output Total 450 175 350 Balance 1030 -175 713 Weight 292 lb 4.8 oz Intake: Nourishment/Supplement quantity 120 (ml) IV 1000 1063 Sodium Chloride 0.9% 1,000 ml @ 1000 998 100 mls/hr IV .Q10H [facility] Rx#: [id number] Oral 360 Output: Urine Catheter Amount 350 Void Amount 450 175 Other: Meal Dinner Percent of Meal Consumed 100% Feeding Ability Independent Urine Appearance Clear Clear Clear Urine Color Bright Yellow Bright Yellow Bright Yellow Urine Odor Normal General appearance: no acute distress Exam: Right knee pain on passive motion Anxious but is alert and oriented Nonlabored breathing No telemetry events except for paced rhythm Medical - PN: Obj Da - Labs CBC & Chem 7: 03/10/19 04:00 03/10/19 04:00 Labs: Abnormal Lab Results 03/10/19 03/10/19 03/09/19 04:00 04:00 07:40 RBC 3.99 L Hgb 11.3 L Hct 34.3 L RDW 15.2 H Monocytes % (Manual) 13 H Nucleated RBCs 1 H Potassium 5.4 H 5.6 H Chloride 111 H 110 H Carbon Dioxide 19 L 21 L Anion Gap 6.0 L BUN 35 H 37 H Creatinine 1.7 H 1.9 H Glucose 116 H Hemoglobin A1c Uric Acid 2.4 L Calcium 7.2 L 7.3 L Phosphorus 2.2 L 1.5 L Magnesium 1.5 L 03/09/19 03/08/19 03/08/19 07:40 03:36 03:36 RBC 4.00 L 4.37 L Hgb 11.3 L 12.3 L Hct 34.4 L 37.5 L RDW 15.0 H 14.8 H Monocytes % (Manual) Nucleated RBCs Potassium Chloride Carbon Dioxide 19 L Anion Gap BUN 35 H Creatinine 2.3 H Glucose 170 H Hemoglobin A1c Uric Acid 1.9 L Calcium 7.8 L Phosphorus 2.5 L Magnesium 03/07/19 18:24 RBC Hgb Hct RDW Monocytes % (Manual) Nucleated RBCs Potassium Chloride Carbon Dioxide Anion Gap BUN Creatinine Glucose Hemoglobin A1c 7.2 H Uric Acid Calcium Phosphorus Magnesium Meds: Medications Acetaminophen (Tylenol) 650 mg PO Q4-6HP PRN; Protocol PRN Reason: Per Pain Protocol/Fever > 101 Hydrocodone Bitart/Acetaminophen ([place] 7.5/325mg) 1 tab PO Q6HP PRN; Protocol PRN Reason: Pain Last Admin: 03/10/19 05:57 Dose: 1 tab Documented by: Allopurinol (Zyloprim) 400 mg PO DAILY [facility] Last Admin: 03/10/19 10:08 Dose: 400 mg Documented by: Amiodarone HCl (Cordarone) 200 mg PO [facility] Last Admin: 03/10/19 10:06 Dose: 200 mg Documented by: Apixaban (Eliquis) 5 mg PO BID [facility] Last Admin: 03/10/19 10:06 Dose: 5 mg Documented by: Atorvastatin Calcium (Lipitor) 40 mg PO DAILY [facility] Last Admin: 03/10/19 10:07 Dose: 40 mg Documented by: Cyanocobalamin (Vitamin B-12) 1,000 mcg PO BID [facility] Stop: 03/12/19 09:01 Last Admin: 03/10/19 10:07 Dose: 1,000 mcg Documented by: Dextrose (Dextrose 50%) 0 ml IV UD PRN PRN Reason: Hypoglycemia Diagnostic Test (Pha) (Accu-Chek) 1 each FS ACHS [facility] Last Admin: 03/10/19 10:05 Dose: 1 each Documented by: Docusate Sodium (Colace) 100 mg PO BID [facility] Last Admin: 03/10/19 10:06 Dose: Not Given Documented by: Fentanyl (Sublimaze) 25 mcg IV Q4HP PRN; Protocol PRN Reason: PAIN LEVEL > 6 Stop: 03/14/19 07:32 Last Admin: 03/10/19 08:05 Dose: 25 mcg Documented by: Folic Acid (Folic Acid) 1 mg PO DAILY [facility] Last Admin: 03/10/19 10:06 Dose: 1 mg Documented by: Glucose (Insta-Glucose) 15 gm PO PRN PRN PRN Reason: Hypoglycemia Sodium Chloride (Sodium Chloride 0.9%) 1,000 mls @ 100 mls/hr IV .Q10H [facility] Last Infusion: 03/10/19 06:25 Dose: 0 mls/hr Documented by: Acetaminophen (Ofirmev) 650 mg in 65 mls @ 130 mls/hr IV Q6HP PRN; Protocol PRN Reason: Per Pain Protocol/Fever > 101 Last Infusion: 03/10/19 07:10 Dose: Infused Documented by: Norepinephrine Bitartrate 16 (mg/ Sodium Chloride) 250 mls @ 9.375 mls/hr IV Q24H [facility]; Protocol Last Admin: 03/09/19 20:26 Dose: Not Given Documented by: Sodium Chloride (Sodium Chloride 0.9%) 250 mls @ 20 mls/hr IV .[id number] [facility] Last Admin: 03/09/19 22:50 Dose: Not Given Documented by: Insulin Glargine (Lantus) 40 unit SQ BID [facility] Last Admin: 03/10/19 10:06 Dose: 40 units Documented by: Insulin Human Lispro (Humalog) [address] [facility]; Protocol Last Admin: 03/10/19 10:05 Dose: Not Given Documented by: Iron Carb/Multivit/[place]/Folic Acid (Multivitamin W/Minerals) 1 tab PO DAILY [facility] Last Admin: 03/10/19 10:07 Dose: 1 tab Documented by: Melatonin (Melatonin 3mg Tablet) 3 mg PO HSP PRN PRN Reason: Insomnia Last Admin: 03/08/19 20:15 Dose: 3 mg Documented by: Ondansetron HCl (Zofran) 4 mg IV Q4-6HP PRN; Protocol PRN Reason: Nausea And Vomiting Last Admin: 03/09/19 21:31 Dose: 4 mg Documented by: Senna/Docusate Sodium (Senna Plus Tablet) 1 tab PO HS [facility] Last Admin: 03/09/19 20:51 Dose: Not Given Documented by: Sodium Chloride (Saline Flush) 10 ml IV Q8 [facility] Last Admin: 03/10/19 05:04 Dose: 10 ml Documented by: Thiamine HCl (Vitamin B1) 100 mg PO DAILY [facility] Last Admin: 03/10/19 10:07 Dose: 100 mg Documented by: Medical - PN: A/P - Time Spent With Patient Total time spent is greater than 50% in coordination of care (as documented) at patient's floor/unit and/or counseling patient: 25 - 35 minutes (1) Acute renal failure Status: Acute Assessment and plan: * Hypovolemic shock-continue crystalloids and vasopressors to keep map at goal. Gradual improvement noted. Improved endorgan dysfunction. Initial work-up including normal lactic acid/white count. No evidence of infection. * Acute renal failure-nephrology on board. Creatinine down from 2.3-1.9->1.7. S/p HD 03/08 for hyperkalemia. * Hyperkalemia-potassium downtrending post Kayexalate from 5.6-5.4. Nephrology on board * Abdominal pain clinically resolved. Abdominal imaging no evidence of acute process. * History of DM type II-continue basal prandial insulin/CC diet * History of atrial fibrillation -rate controlled. On amiodarone. A sensed V paced. Anticoagulated on apixaban * Intermittent V. tach status post spontaneous defibrillator discharge. Currently on amiodarone. * History of dilated cardiomyopathy with EF 35%. Repeat echo EF 30%. hold SERGEY inhibitor/spironolactone until shock resolves. * Lower extremity ulcer-wound care consult * History of gout continue allopurinol/colchicine * Hyperlipidemia continue statin * Full code * Prophylaxis apixaban Plan * Transfer to telemetry * Repeat a.m. labs * Continue holding spironolactone/SERGEY inhibitor * Renal issues management per nephrology * Continue wound care * Prior medical condition management home meds Current Visit: No Medical - PN: Qual - VTE Deep Vein Thrombosis/Pulmonary Embolism Present on Admission: No
[2019-03-10] MEDS: 0.9 % SODIUM CHLORIDE 250 ML IV SCH (10:30)
[2019-03-10] MEDS ORDERED: 0.9 % SODIUM CHLORIDE 250 ML IV SCH (10:39)
[2019-03-10] MEDS ORDERED: DEXTROSE 31 GM ORAL.SUSP PO PRN (10:39)
[2019-03-10] MEDS ORDERED: ACETAMINOPHEN 325 MG TABLET PO PRN (10:39)
[2019-03-10] MEDS ORDERED: ACETAMINOPHEN 650 MG/65 ML BOTTLE IV PRN (10:39)
[2019-03-10] MEDS ORDERED: ONDANSETRON 4 MG/2 ML VIAL IV PRN (10:39)
[2019-03-10] MEDS ORDERED: DEXTROSE 50% 50 ML VIAL IV PRN (10:39)
--- NOTE | 2019-03-10 11:48 | Nephrology Progress Note ---
Subjective Patient information: Note initiated : 03/10/19 at 11:45 am Service Date, if different from initiated Date: [] Patient: Kvng Hensley 63 y/o M admitted on 03/07/19 for hyperkalemia and acute renal failure . Chief Complaint: [] He is feeling better. His right knee hurts. Having a gout flare up. Objective - Vital Signs Vital signs: Vital Signs Temp Pulse Resp BP BP Pulse Ox 03/10/19 08:08 18 03/10/19 08:01 97.8 F 24 H 116/91 03/10/19 07:01 15 94/67 03/10/19 06:02 17 105/70 03/10/19 05:02 18 164/130 03/10/19 04:01 22 104/65 03/10/19 04:00 98.4 F 75 14 104/65 96 03/10/19 03:00 14 112/95 03/10/19 02:00 22 116/96 03/10/19 01:01 14 108/76 03/10/19 00:01 17 101/88 03/10/19 00:00 73 20 101/88 96 03/09/19 23:35 96 03/09/19 23:01 20 105/74 03/09/19 22:01 21 104/78 03/09/19 21:01 21 106/69 03/09/19 20:01 14 104/72 03/09/19 20:00 75 18 104/72 98 03/09/19 19:11 77 16 107/67 96 03/09/19 19:02 14 107/67 03/09/19 17:01 21 113/88 03/09/19 16:07 16 03/09/19 16:01 97.6 F 16 114/91 100 03/09/19 14:25 18 03/09/19 13:19 98/74 Intake and Output 03/09/19 03/10/19 03/10/19 21:59 05:59 13:59 Intake Total 1480 1063 Output Total 450 175 350 Balance 1030 -175 713 Intake: Nourishment/Supplement quantity 120 (ml) IV 1000 1063 Sodium Chloride 0.9% 1,000 ml @ 1000 998 100 mls/hr IV .Q10H [facility] Rx#: [id number] Oral 360 Output: Urine Catheter Amount 350 Void Amount 450 175 Other: Meal Dinner Percent of Meal Consumed 100% Feeding Ability Independent Urine Appearance Clear Clear Clear Urine Color Bright Yellow Bright Yellow Bright Yellow Urine Odor Normal Weight 292 lb 4.8 oz Intake & Output: Intake & Output 03/09/19 03/10/19 03/10/19 21:59 05:59 13:59 Intake Total 1480 1063 Output Total 450 175 350 Balance 1030 -175 713 Weight 292 lb 4.8 oz Intake: Nourishment/Supplement quantity 120 (ml) IV 1000 1063 Sodium Chloride 0.9% 1,000 ml @ 1000 998 100 mls/hr IV .Q10H [facility] Rx#: [id number] Oral 360 Output: Urine Catheter Amount 350 Void Amount 450 175 Other: Meal Dinner Percent of Meal Consumed 100% Feeding Ability Independent Urine Appearance Clear Clear Clear Urine Color Bright Yellow Bright Yellow Bright Yellow Urine Odor Normal - General Appearance General appearance: well-developed, well-nourished EENT: ATNC Neck: no JVD Respiratory: no kyphosis Cardiology: mid-systolic murmur Gastrointestinal: normoactive bowel sounds Integumentary: no rash Neurologic: no focal deficit - Lab 03/10/19 04:00 03/10/19 04:00 Most recent lab results Calcium 7.2 mg/dl (8.6-10.4) L 03/10/19 04:00 Phosphorus 2.2 mg/dL (2.7-4.5) L 03/10/19 04:00 Magnesium 1.6 mg/dL (1.6-2.5) 03/10/19 04:00 Assessment and Plan (1) Acute renal failure Status: Acute Comment: KENDY, secondary to ATN. Had hypotension. Now getting better. Hyperkalemia. Improved. Hypotension, getting better. Qualifiers: Acute renal failure type: with acute tubular necrosis Qualified Code(s): N17.0 - Acute kidney failure with tubular necrosis
[2019-03-10] MEDS: fentaNYL 100 MCG/2 ML VIAL IV PRN ×2 (13:27→19:09)
[2019-03-10] MEDS ORDERED: predniSONE 20 MG TABLET PO ONE (14:36)
--- NOTE | 2019-03-10 16:51 | XRay Report ---
CLINICAL INFORMATION: History of gout. Recurrent knee joint effusions TECHNIQUE: Informed consent was obtained. Routine ChloraPrep skin cleansing. 1% lidocaine injected subcutaneously and deep. An 18-gauge straight needle was placed in the right knee joint. A lateral approach was used. AP portable image demonstrates appropriate anatomic position. 30 mL mildly bloody fluid was removed. This fluid was not purulent. Fluid was sent for laboratory studies as ordered by the clinical service. IMPRESSION: 1. Right knee joint aspiration 2. 30 mL mildly bloody, nonpurulent fluid removed Interpreted and Authenticated by: Kvng Prabhakar 03/10/19
[2019-03-10 17:41] LABS: Appearance,Synovial Fluid BLOODY; Color,Synovial Fluid RED; Nucleated Cells,Synovial Fld 2956 /cumm
[2019-03-10 18:12] LABS: Lymphocytes,Synovial Fluid 8 %; Neutrophils,Synovial Fluid 73 % (0-25); Other Cells,Synovial Fluid 19 %
[2019-03-10] MEDS ORDERED: NOREPINEPHRINE BITARTRATE 16 MG in 0.9 % SODIUM CHLORIDE 234 ML IV PRN (20:15)
[2019-03-10] MEDS: SENNOSIDES/DOCUSATE SODIUM 1 TAB TABLET PO SCH (20:24)
[2019-03-10] MEDS ORDERED: MELATONIN 3 MG TABLET PO PRN (21:00)
[2019-03-11] MEDS: 0.9 % SODIUM CHLORIDE 10 ML SYRINGE IV SCH ×3 (05:08→21:10)
[2019-03-11] MEDS: INSULIN GLARGINE, HUMAN 1 UNIT/0.01 ML SQ SCH ×2 (08:15→21:07)
[2019-03-11] MEDS: INSULIN LISPRO 1 UNIT/0.01 ML UNIT SQ SCH ×4 (08:17→21:07)
[2019-03-11 09:06] LABS: Hematocrit 33.2 % (41.0-55.0); Hemoglobin 10.9 g/dL (13.5-16.5); Mean Cell Volume 84.9 fL (80.0-100.0); Mean Corpuscular HGB Conc 32.9 g/dL (31.0-36.0); Platelet Count 196 K/mcL (140-440); RBC 3.91 M/mcL (4.50-5.90); Red Cell Distribution Width 15.2 % (11.5-14.5); WBC 6.5 K/mcL (4.5-11.0)
[2019-03-11 09:21] LABS: ALT/SGPT 10 U/l (0-40); AST/SGOT 17 U/l (0-37); Albumin 3.4 gm/dL (3.2-5.2); Albumin/Globulin Ratio 1.1 (1.0-2.3); Alkaline Phosphatase 66 U/L (39-117); Bilirubin,Direct < 0.2 mg/dL (0.0-0.3); Bilirubin,Total 0.3 mg/dL (0.0-1.0); Blood Urea Nitrogen 37 mg/dl (8-23); Carbon Dioxide 17 mmol/L (22-30); Chloride 109 mmol/L (96-108); Globulin 3.2 gm/dL (2.2-3.7); Glomerular Filtration Rate 45; Glucose 187 mg/dL (70-105); Lactate Dehydrogenase 195 U/L (94-250); Phosphorous 2.4 mg/dL (2.7-4.5); Triglycerides 44 mg/dl (<150); Uric Acid 2.5 mg/dL (2.5-8.0)
--- NOTE | 2019-03-11 09:32 | Nephrology Progress Note ---
Subjective Patient information: Note initiated : 03/11/19 at 9:30 am Service Date, if different from initiated Date: [] Patient: Kvng Hensley 63 y/o M admitted on 03/07/19 for hyperkalemia and acute renal failure . Chief Complaint: [] Feels better. Had knee tapped and it feels better as well. Objective - Vital Signs Vital signs: Vital Signs Temp Pulse Pulse Resp BP BP BP 03/11/19 08:00 97.4 F 73 16 115/79 03/11/19 02:50 97.7 F 78 14 106/64 03/10/19 23:49 98.0 F 85 14 130/80 03/10/19 19:17 75 03/10/19 18:47 98.6 F 86 12 101/63 03/10/19 16:00 97.9 F 86 86 16 135/70 03/10/19 11:57 97.5 F 18 132/108 Pulse Ox 03/11/19 08:00 98 03/11/19 02:50 94 03/10/19 23:49 97 03/10/19 19:17 03/10/19 18:47 94 03/10/19 16:00 96 03/10/19 11:57 98 Intake and Output 03/10/19 03/11/19 03/11/19 21:59 05:59 13:59 Intake Total 1200 Output Total 125 350 125 Balance -125 850 -125 Intake: IV 1000 Sodium Chloride 0.9% 1,000 ml @ 1000 100 mls/hr IV .Q10H [facility] Rx#: [id number] Oral 200 Output: Void Amount 125 350 125 Other: Meal jello, spencer crackers (1 pack) Percent of Meal Consumed 100% Feeding Ability Independent Urine Appearance Clear Clear Clear Urine Color Bright Yellow Bright Yellow Bright Yellow Urine Odor Strong Normal Normal Weight 299 lb Intake & Output: Intake & Output 03/10/19 03/11/19 03/11/19 21:59 05:59 13:59 Intake Total 1200 Output Total 125 350 125 Balance -125 850 -125 Weight 299 lb Intake: IV 1000 Sodium Chloride 0.9% 1,000 ml @ 1000 100 mls/hr IV .Q10H [facility] Rx#: [id number] Oral 200 Output: Void Amount 125 350 125 Other: Meal jello, spencer crackers (1 pack) Percent of Meal Consumed 100% Feeding Ability Independent Urine Appearance Clear Clear Clear Urine Color Bright Yellow Bright Yellow Bright Yellow Urine Odor Strong Normal Normal - General Appearance General appearance: well-developed, well-nourished EENT: ATNC Neck: no JVD Respiratory: no kyphosis Cardiology: diastolic murmur, edema Gastrointestinal: normoactive bowel sounds - Lab 03/11/19 07:13 03/11/19 07:13 Most recent lab results Calcium 7.0 mg/dl (8.6-10.4) L 03/11/19 07:13 Phosphorus 2.4 mg/dL (2.7-4.5) L 03/11/19 07:13 Magnesium 1.5 mg/dL (1.6-2.5) L 03/11/19 07:13 Assessment and Plan (1) Acute renal failure Status: Acute Comment: KENDY, secondary to ATN. Had hypotension. Now getting better. Hyperkalemia. Worse again today. Will give lasix 20mg iv q 12. Hypotension, better. Qualifiers: Acute renal failure type: with acute tubular necrosis Qualified Code(s): N17.0 - Acute kidney failure with tubular necrosis
[2019-03-11] MEDS ORDERED: SODIUM POLYSTYRENE SULFONATE 15 GM/60 ML SUSPENSION PO ONE (09:33)
[2019-03-11 09:40] LABS: POC Blood Urea Nitrogen 41 mg/dl (8-23); POC CO2 14 mmol/L (22-30); POC Calcium, Ionized 0.88 mmol/L (1.16-1.32); POC Chloride 116 mmol/L (96-108); POC Creatinine 1.7 mg/dl (0.7-1.2); POC Glucose, Random 224 mg/dL (70-105); POC Potassium 5.8 mmol/L (3.3-5.1); POC Sodium 138 mmol/L (133-145)
[2019-03-11] MEDS: DOCUSATE SODIUM 100 MG CAPSULE PO SCH ×2 (09:40→21:08)
[2019-03-11] MEDS: MULTIVIT,THER IRON,CA,FA & MIN 1 TABLET PO SCH (09:40)
[2019-03-11] MEDS: predniSONE 20 MG TABLET PO SCH (09:41)
[2019-03-11] MEDS: ATORVASTATIN 20 MG TABLET PO SCH (09:41)
[2019-03-11] MEDS: AMIODARONE HCL 200 MG TABLET PO SCH (09:42)
[2019-03-11] MEDS: THIAMINE 100 MG TABLET PO SCH (09:42)
[2019-03-11] MEDS: APIXABAN 5 MG TABLET PO SCH ×2 (09:43→21:08)
[2019-03-11] MEDS: CYANOCOBALAMIN (VITAMIN B-12) 500 MCG TABLET PO SCH ×2 (09:43→21:08)
[2019-03-11] MEDS: ALLOPURINOL 100 MG TABLET PO SCH (09:43)
[2019-03-11 09:44] LABS: Lymphocytes % 5 % (15-49); Monocytes % (Manual) 3 % (1-12); Platelet Estimate NORMAL (NORMAL); RBC Morphology NORMAL (NORMAL); Reactive Lymphocytes 1 % (0-2); Segmented Neutrophils % 91 % (38-78)
[2019-03-11] MEDS: FOLIC ACID 1 MG TABLET PO SCH (09:44)
[2019-03-11] MEDS: HYDROCODONE/APAP 7.5/325MG TABLET PO PRN ×2 (09:44→18:49)
[2019-03-11] MEDS: 0.9 % SODIUM CHLORIDE 1,000 ML IV SCH (10:04)
[2019-03-11] MEDS: FUROSEMIDE 20 MG/2 ML VIAL IV SCH ×2 (10:06→15:57)
[2019-03-11] MEDS: Sodium Zirconium Cyclosilicate [Lokelma] 10 gm Packet PO SCH ×2 (12:32→21:14)
--- NOTE | 2019-03-11 13:33 | Internal Med Progress Note ---
Medical - PN: Subj Patient information: Note initiated : 03/11/19 at 1:31 pm Service Date, if different from initiated Date: [] Patient: Kvng Hensley a 63 y/o M admitted on 03/07/19 for hyperkalemia and acute renal failure . Chief Complaint: [] Interval history: Mr. Hensley is a 63 year old M with a known history of chronic kidney disease managed by Dr. Quinteros nephrology. Patient was in baseline state of health until a month prior to presentation started experiencing loss of appetite associated with nausea. Patient also had associated abdominal discomfort along with bloating and associated 3-4 watery diarrhea a day. Over time he got progressively weaker and has not been able to eat or drink much. With worse jossie symptoms he was advised for gallbladder ultrasound scheduled for today by PCP. However this morning he was so weak and fatigued that he stumbled on the way to the bathroom. He subsequently presented to [facility]. Initial work-up was consistent with hyperkalemia 6.8/acute renal failure creatinine of 3 and hypotension with pressures in 60. Patient was started on hyperkalemia protocol, received crystalloid and subsequently nephrology was consulted. His potassium recheck was higher at 7.8. Emergent HD catheter was placed and subsequently hospitalist service at [facility] was consulted for transferring patient for need of urgent hemodialysis. Patient transferred from [facility] to [facility] via ground ambulance. Signout was obtained from Dr. Fortino Contreras ER physician on phone. At the time of evaluation patient is alert and oriented. He was able to answer most of the questions. He was able to endorse history as above. He denies recent NSAID intake, dysuria, hematuria, weight loss, bloody emesis or bloody stool. He further denies rash, joint pain, headache, photophobia. He does endorse to fever and chills early this morning. He denies sick contacts 03/08-patient overnight remained on pressors with crystalloid challenges to maintain map at goal. Post hemodialysis potassium improved to 4.8. Satisfactory urine output. Weaning vasopressors. Multiple runs of V. tach last night with spontaneous defibrillator discharge. Creatinine 2.3 BUN 35. Continue monitor renal function. Nephrology on board. 03/09- Doing a lot better. off pressors, Cr stable now down to 1.9. K uptrending at 5.6. Nehrology on board, good urine output. Phosphorus 1.5. No fever chi lls or telemetry events. 03/10-patient complains of severe nausea after Kayexalate administration for hyperkalemia. Potassium down to 5.4. Creatinine improving to 1.7. Complains of nausea. Systolics around 90s but off pressors. Ongoing physical therapy. Is slightly lightheaded. Complains of right knee pain 8 out of 10. Tolerating diet. No family at bedside 03/11-patient doing well. No overnight events. Creatinine downtrending however potassium up to 6.1. Resin exchange binder for hyperkalemia as per nephrology. Systolic stable. Diuresing well. Creatinine at 1.7 near baseline. Acidosis being managed by nephrology. Anticipate discharge in 24 to 48 hours pending improvement in renal function/potassium and HD catheter removal - Constitutional Vitals: Vital Signs Temp Pulse Resp BP Pulse Ox 97.8 F 70 16 107/73 95 03/11/19 11:45 03/11/19 11:45 03/11/19 11:45 03/11/19 11:45 03/11/19 11:45 Period Temp Pulse Resp BP Sys/Rush Pulse Ox Last 24 Hr 97.4 F-98.6 F 70-86 12-16 101-135/63-80 94-98 Intake and Output 03/10/19 03/11/19 03/11/19 21:59 05:59 13:59 Intake Total 1200 2085 Output Total 522 317 8189 Balance -125 850 960 Weight 299 lb Intake & Output: Intake & Output 03/10/19 03/11/19 03/11/19 21:59 05:59 13:59 Intake Total 1200 2085 Output Total 773 754 6320 Balance -125 850 960 Weight 299 lb Intake: IV 1000 1000 Sodium Chloride 0.9% 1,000 ml @ 1000 1000 100 mls/hr IV .Q10H [facility] Rx#: [id number] Oral 200 1085 Output: Void Amount 792 132 5567 Other: Meal jello, spencer crackers (1 pack) Lunch Percent of Meal Consumed 100% 100% Feeding Ability Independent Independent Urine Appearance Clear Clear Clear Urine Color Bright Yellow Bright Yellow Pale Urine Odor Strong Normal Strong General appearance: no acute distress Exam: Alert oriented Nonlabored breathing No anxiety No lymphedema No telemetry events except for paced rhythm Medical - PN: Obj Da - Labs CBC & Chem 7: 03/11/19 07:13 03/11/19 07:13 Labs: Abnormal Lab Results 03/11/19 03/11/19 03/11/19 09:29 07:13 07:13 RBC 3.91 L Hgb 10.9 L Hct 33.2 L POC Hct 35.0 L RDW 15.2 H Seg Neutrophils % 91 H Lymphocytes % 5 L Monocytes % (Manual) Nucleated RBCs POC Potassium 5.8 H Potassium 6.1 H* POC Chloride 116 H Chloride 109 H Carbon Dioxide 17 L POC Total CO2 14 L Anion Gap POC BUN 41 H BUN 37 H Creatinine 1.6 H POC Creatinine 1.7 H Glucose 187 H POC Glucose 224 H Uric Acid Calcium 7.0 L POC WB Ioniz Calcium 0.88 L Phosphorus 2.4 L Magnesium 1.5 L Synovial Neutrophils 03/10/19 03/10/19 03/10/19 16:35 04:00 04:00 RBC 3.99 L Hgb 11.3 L Hct 34.3 L POC Hct RDW 15.2 H Seg Neutrophils % Lymphocytes % Monocytes % (Manual) 13 H Nucleated RBCs 1 H POC Potassium Potassium 5.4 H POC Chloride Chloride 111 H Carbon Dioxide 19 L POC Total CO2 Anion Gap POC BUN BUN 35 H Creatinine 1.7 H POC Creatinine Glucose POC Glucose Uric Acid Calcium 7.2 L POC WB Ioniz Calcium Phosphorus 2.2 L Magnesium Synovial Neutrophils 73 H 03/09/19 03/09/19 07:40 07:40 RBC 4.00 L Hgb 11.3 L Hct 34.4 L POC Hct RDW 15.0 H Seg Neutrophils % Lymphocytes % Monocytes % (Manual) Nucleated RBCs POC Potassium Potassium 5.6 H POC Chloride Chloride 110 H Carbon Dioxide 21 L POC Total CO2 Anion Gap 6.0 L POC BUN BUN 37 H Creatinine 1.9 H POC Creatinine Glucose 116 H POC Glucose Uric Acid 2.4 L Calcium 7.3 L POC WB Ioniz Calcium Phosphorus 1.5 L Magnesium 1.5 L Synovial Neutrophils Meds: Medications Acetaminophen (Tylenol) 650 mg PO Q4-6HP PRN; Protocol PRN Reason: Per Pain Protocol/Fever > 101 Hydrocodone Bitart/Acetaminophen ([place] 7.5/325mg) 1 tab PO Q6HP PRN; Protocol PRN Reason: Pain Last Admin: 10/22/19 09:44 Dose: 1 tab Documented by: Allopurinol (Zyloprim) 400 mg PO DAILY [facility] Last Admin: 03/11/19 09:43 Dose: 400 mg Documented by: Amiodarone HCl (Cordarone) 200 mg PO [facility] Last Admin: 03/11/19 09:42 Dose: 200 mg Documented by: Apixaban (Eliquis) 5 mg PO BID [facility] Last Admin: 03/11/19 09:43 Dose: 5 mg Documented by: Atorvastatin Calcium (Lipitor) 40 mg PO DAILY [facility] Last Admin: 03/11/19 09:41 Dose: 40 mg Documented by: Cyanocobalamin (Vitamin B-12) 1,000 mcg PO BID [facility] Stop: 03/12/19 09:01 Last Admin: 03/11/19 09:43 Dose: 1,000 mcg Documented by: Dextrose (Dextrose 50%) 0 ml IV UD PRN PRN Reason: Hypoglycemia Diagnostic Test (Pha) (Accu-Chek) 1 each FS ACHS [facility] Last Admin: 03/11/19 11:45 Dose: 1 each Documented by: Docusate Sodium (Colace) 100 mg PO BID [facility] Last Admin: 03/11/19 09:40 Dose: 100 mg Documented by: Fentanyl (Sublimaze) 25 mcg IV Q4HP PRN; Protocol PRN Reason: PAIN LEVEL > 6 Stop: 03/14/19 07:32 Last Admin: 03/10/19 19:09 Dose: 0.25 mg Documented by: Folic Acid (Folic Acid) 1 mg PO DAILY [facility] Last Admin: 03/11/19 09:44 Dose: 1 mg Documented by: Furosemide (Lasix) 20 mg IV BIDD [facility] Last Admin: 03/11/19 10:06 Dose: 20 mg Documented by: Glucose (Insta-Glucose) 15 gm PO PRN PRN PRN Reason: Hypoglycemia Norepinephrine Bitartrate 16 (mg/ Sodium Chloride) 250 mls @ 9.375 mls/hr IV Q24HP PRN; Protocol PRN Reason: TITRATE TO KEEP MAP > 65 Sodium Chloride (Sodium Chloride 0.9%) 1,000 mls @ 100 mls/hr IV .Q10H [facility] Last Admin: 03/11/19 10:04 Dose: 100 mls/hr Documented by: Acetaminophen (Ofirmev) 650 mg in 65 mls @ 130 mls/hr IV Q6HP PRN; Protocol PRN Reason: Per Pain Protocol/Fever > 101 Insulin Glargine (Lantus) 40 unit SQ BID [facility] Last Admin: 03/11/19 08:15 Dose: 40 units Documented by: Insulin Human Lispro (Humalog) 0 unit SQ ACHS [facility]; Protocol Last Admin: 03/11/19 11:58 Dose: 2 units Documented by: Iron Carb/Multivit/Pantry Worker/Folic Acid (Multivitamin W/Minerals) 1 tab PO DAILY [facility] Last Admin: 03/11/19 09:40 Dose: 1 tab Documented by: Melatonin (Melatonin 3mg Tablet) 3 mg PO HSP PRN PRN Reason: Insomnia Last Admin: 03/10/19 20:04 Dose: 3 mg Documented by: Sodium Zirconium Cyclosilicate [ Lokelma] 10 Gm Packet 1 dose PO BID [facility] Stop: 03/11/19 21:01 Last Admin: 03/11/19 12:32 Dose: 1 dose Documented by: Ondansetron HCl (Zofran) 4 mg IV Q4-6HP PRN; Protocol PRN Reason: Nausea And Vomiting Prednisone (Prednisone) 40 mg PO [facility] Last Admin: 03/11/19 09:41 Dose: 40 mg Documented by: Senna/Docusate Sodium (Senna Plus Tablet) 1 tab PO HS [facility] Last Admin: 03/10/19 20:24 Dose: Not Given Documented by: Sodium Chloride (Saline Flush) 10 ml IV Q8 [facility] Last Admin: 03/11/19 05:08 Dose: Not Given Documented by: Thiamine HCl (Vitamin B1) 100 mg PO DAILY [facility] Last Admin: 03/11/19 09:42 Dose: 100 mg Documented by: Medical - PN: A/P - Time Spent With Patient Total time spent is greater than 50% in coordination of care (as documented) at patient's floor/unit and/or counseling patient: 25 - 35 minutes (1) Acute renal failure Status: Acute Assessment and plan: * Hypovolemic shock-continue crystalloids and vasopressors to keep map at goal. Gradual improvement noted. Improved endorgan dysfunction. Initial work-up including normal lactic acid/white count. No evidence of infection. * Acute renal failure-nephrology on board. Creatinine down from 2.3-1.9->1.7. S/p HD 03/08 for hyperkalemia. Will likely have tunneled dialysis catheter removed in the next 24 hours per nephrology * Acute hyperkalemia-managed per nephrology with recent exchange binders. Patient did not tolerate Kayexalate. Repeat BMP today * Abdominal pain clinically resolved. Abdominal imaging no evidence of acute pr ocess. * History of DM type II-continue basal prandial insulin/CC diet * History of atrial fibrillation -rate controlled. On amiodarone. A sensed V paced. Anticoagulated on apixaban * Intermittent V. tach status post spontaneous defibrillator discharge. Currently on amiodarone. * History of dilated cardiomyopathy with EF 35%. Repeat echo EF 30%. hold SERGEY inhibitor/spironolactone until shock resolves. * Lower extremity ulcer-wound care consult * History of gout continue allopurinol/colchicine * Hyperlipidemia continue statin * Full code * Prophylaxis apixaban Plan * Hyperkalemia/renal failure management per nephrology * Repeat BMP * Continue holding spironolactone/SERGEY inhibitor * Continue wound care * Prior medical condition management home meds * PT OT * Discharge planning per case management Current Visit: No Medical - PN: Qual - VTE Deep Vein Thrombosis/Pulmonary Embolism Present on Admission: No
[2019-03-11 18:48] LABS: Blood Urea Nitrogen 37 mg/dl (8-23); Calcium 6.8 mg/dl (8.6-10.4); Carbon Dioxide 16 mmol/L (22-30); Chloride 107 mmol/L (96-108); Glomerular Filtration Rate 42; Glucose 176 mg/dL (70-105)
[2019-03-11] MEDS: SENNOSIDES/DOCUSATE SODIUM 1 TAB TABLET PO SCH (21:08)
[2019-03-12] MEDS: HYDROCODONE/APAP 7.5/325MG TABLET PO PRN ×2 (02:54→12:41)
[2019-03-12] MEDS: 0.9 % SODIUM CHLORIDE 10 ML SYRINGE IV SCH (05:00)
[2019-03-12] MEDS: INSULIN LISPRO 1 UNIT/0.01 ML UNIT SQ SCH ×2 (07:34→11:29)
[2019-03-12] MEDS: MULTIVIT,THER IRON,CA,FA & MIN 1 TABLET PO SCH (08:20)
[2019-03-12] MEDS: FOLIC ACID 1 MG TABLET PO SCH (08:21)
[2019-03-12] MEDS: ATORVASTATIN 20 MG TABLET PO SCH (08:21)
[2019-03-12] MEDS: APIXABAN 5 MG TABLET PO SCH (08:21)
[2019-03-12] MEDS: predniSONE 20 MG TABLET PO SCH (08:21)
[2019-03-12] MEDS: ALLOPURINOL 100 MG TABLET PO SCH (08:21)
[2019-03-12] MEDS: THIAMINE 100 MG TABLET PO SCH (08:22)
[2019-03-12] MEDS: AMIODARONE HCL 200 MG TABLET PO SCH (08:22)
[2019-03-12] MEDS: CYANOCOBALAMIN (VITAMIN B-12) 500 MCG TABLET PO SCH (08:22)
[2019-03-12] MEDS: FUROSEMIDE 20 MG/2 ML VIAL IV SCH (08:23)
[2019-03-12] MEDS: DOCUSATE SODIUM 100 MG CAPSULE PO SCH (08:23)
[2019-03-12] MEDS: INSULIN GLARGINE, HUMAN 1 UNIT/0.01 ML SQ SCH (08:24)
--- NOTE | 2019-03-12 09:28 | Nephrology Progress Note ---
Subjective Patient information: Note initiated : 03/12/19 at 9:25 am Service Date, if different from initiated Date: [] Patient: Kvng Hensley 63 y/o M admitted on 03/07/19 for hyperkalemia and acute renal failure . Chief Complaint: [] Feels a lot better. Had significant urine output. Knees feel better. Objective - Vital Signs Vital signs: Vital Signs Temp Pulse Resp BP BP Pulse Ox 03/12/19 07:59 68 20 95 03/12/19 07:00 97.7 F 82 18 111/70 98 03/12/19 02:47 98.0 F 68 20 105/59 95 03/11/19 23:32 98.4 F 77 20 113/71 98 03/11/19 19:09 98.0 F 89 20 132/65 97 03/11/19 15:00 98.2 F 74 12 116/78 95 03/11/19 11:45 97.8 F 70 16 107/73 95 Intake and Output 03/11/19 03/12/19 03/12/19 21:59 05:59 13:59 Intake Total 983 500 Output Total 690 425 Balance 293 75 Intake: IV 583 Sodium Chloride 0.9% 1,000 ml @ 583 100 mls/hr IV .Q10H [facility] Rx#: [id number] Oral 400 500 Output: Void Amount 690 425 Other: Urine Appearance Clear Clear Clear Urine Color Bright Yellow Bright Yellow Bright Yellow Urine Odor Strong Weight 299 lb 8 oz Intake & Output: Intake & Output 03/11/19 03/12/19 03/12/19 21:59 05:59 13:59 Intake Total 983 500 Output Total 690 425 Balance 293 75 Weight 299 lb 8 oz Intake: IV 583 Sodium Chloride 0.9% 1,000 ml @ 583 100 mls/hr IV .Q10H [facility] Rx#: [id number] Oral 400 500 Output: Void Amount 690 425 Other: Urine Appearance Clear Clear Clear Urine Color Bright Yellow Bright Yellow Bright Yellow Urine Odor Strong - General Appearance General appearance: well-developed, well-nourished EENT: ATNC Neck: no JVD Respiratory: no kyphosis Cardiology: no murmurs Gastrointestinal: normoactive bowel sounds Integumentary: no rash Musculoskeletal: no deformities - Lab 03/11/19 07:13 03/11/19 17:45 Most recent lab results Calcium 6.8 mg/dl (8.6-10.4) L 03/11/19 17:45 Phosphorus 2.4 mg/dL (2.7-4.5) L 03/11/19 07:13 Magnesium 1.5 mg/dL (1.6-2.5) L 03/11/19 07:13 Assessment and Plan (1) Acute renal failure Status: Acute Comment: KENDY, improving, todays labs pending. Hyperkalemia. Received Lokelma yesterday. Labs pending. HTN. controlled. Can d/c if labs ok with a followup in 1-2 weeks. Qualifiers: Acute renal failure type: with acute tubular necrosis Qualified Code(s): N17.0 - Acute kidney failure with tubular necrosis
[2019-03-12 09:34] LABS: Hematocrit 34.9 % (41.0-55.0); Hemoglobin 11.5 g/dL (13.5-16.5); Mean Platelet Volume 8.7 fL (7.4-10.4); Platelet Count 232 K/mcL (140-440); Red Cell Distribution Width 14.9 % (11.5-14.5); WBC 7.7 K/mcL (4.5-11.0)
[2019-03-12 10:07] LABS: Lymphocytes % 10 % (15-49); Monocytes % (Manual) 5 % (1-12); Nucleated Red Blood Cells 3 % (0-0); Platelet Estimate NORMAL (NORMAL); RBC Morphology NORMAL (NORMAL); Reactive Lymphocytes 1 % (0-2); Segmented Neutrophils % 84 % (38-78)
[2019-03-12 10:27] LABS: ALT/SGPT 12 U/l (0-40); AST/SGOT 16 U/l (0-37); Albumin 3.6 gm/dL (3.2-5.2); Albumin/Globulin Ratio 1.1 (1.0-2.3); Alkaline Phosphatase 72 U/L (39-117); Bilirubin,Direct < 0.2 mg/dL (0.0-0.3); Bilirubin,Total 0.2 mg/dL (0.0-1.0); Blood Urea Nitrogen 42 mg/dl (8-23); Calcium 7.1 mg/dl (8.6-10.4); Carbon Dioxide 18 mmol/L (22-30); Chloride 110 mmol/L (96-108); Globulin 3.3 gm/dL (2.2-3.7); Glomerular Filtration Rate 42; Glucose 142 mg/dL (70-105); Lactate Dehydrogenase 206 U/L (94-250); Phosphorous 2.2 mg/dL (2.7-4.5); Triglycerides 51 mg/dl (<150); Uric Acid 2.8 mg/dL (2.5-8.0)
--- NOTE | 2019-03-12 11:29 | Discharge Summary ---
Medical - DS: Prov Patient information: Note initiated : 03/12/19 at 11:25 am Service Date, if different from initiated Date: [] Patient: Kvng Hensley 63 y/o M admitted on 03/07/19 for hyperkalemia and acute renal failure . Chief Complaint: [] Date of admission: 03/07/19 16:30 Discharge date: 03/12/19 Primary care physician: MARCIA Garner Consults: 03/07/19 16:58 Consult to Physician [CONS] Routine Comment: Consulting Provider: Nash Quinteros Reason For Exam: Physician to Consult Medical - DS: Meds - Discharge Medications Prescriptions: predniSONE [Prednisone] 40 mg PO [facility] #4 tab Transmission Status: Pending to [facility] Active and Home Medications: Home Medications atorvastatin 20 mg tablet 40 mg PO DAILY tab 05/07/17 [History Confirmed 03/07/19 Last Taken 03/06/191999] furosemide 40 mg tablet 80 mg PO QDAY 05/07/17 [History Confirmed 03/07/19 Last Taken Unknown] hydrocodone 7.5 mg-acetaminophen 325 mg tablet 1 tab PO Q6H PRN 05/07/17 [History Confirmed 03/07/19 Last Taken Unknown] insulin aspart U-100 100 100 unit/mL subcutaneous solution 0 unit SUB-Q TID ml 05/07/17 [History Confirmed 03/07/19 Last Taken Unknown] insulin detemir U-100 100) 100 unit/mL subcutaneous solution 40 unit SUB-Q BID ml 05/07/17 [History Confirmed 03/07/19 Last Taken Unknown] insulin syringe-needle U-100 1 mL 31 gauge x 5/16" 1 each .ROUTE .MEDSUPPLY #10 each 05/07/17 [History Confirmed 03/07/19 Last Taken Unknown] allopurinol 100 mg tablet 100 mg PO QDAY #30 tab 01/13/19 [Rx Confirmed 03/07/19 Last Taken 03/06/19 20:00] allopurinol 100 mg tablet See Rx Instructions PO QDAY #30 tab 01/13/19 [Rx Confirmed 03/07/19 Last Taken 03/06/19 20:00] Am[facility]arone [facility]] [facility] [History Confirmed 03/07/19 Last Taken 03/06/191999] Apixaban [Eliquis] 5 mg PO BID 03/07/19 [History Confirmed 03/07/19 Last Taken 03/06/191999] predniSONE [Prednisone] 40 mg PO [facility] #4 tab 03/12/19 [Rx Last Taken Unknown] Medical - DS: Hosp Hospital Course: Discharge diagnosis * Acute renal failure-secondary to ischemic ATN. Managed by nephrology. Cre atinine down from 2.3-1.9->1.7 now at baseline. S/p HD 03/08 for hyperkalemia. Will likely have tunneled dialysis catheter removed in the next 24 hours per nephrology * Hypovolemic shock-clinically resolved. Initially managed on vasopressors/crystalloids. Continue to hold spironolactone/SERGEY inhibitor. Recommend follow-up with nephrology as outpatient. * Acute hyperkalemia- Potassium down to 4.7 post hemodialysis. HD discontinued. Follow-up with nephrology as outpatient * Acute gout flare -clinically improved on steroids. Arthrocentesis negative Gram stain/culture. Continue additional 2 days steroid/home dose allopurinol * Abdominal pain clinically resolved. imaging negative * History of DM type II-managed on basal prandial insulin/CC diet * History of atrial fibrillation -remained rate controlled. On amiodarone. A sensed V paced. * CVA prophylaxis anticoagulated on apixaban * Intermittent V. tach status post spontaneous defibrillator discharge. Currently on amiodarone. * History of dilated cardiomyopathy with EF 35%. Repeat echo EF 30%. Discontinued SERGEY inhibitor/spironolactone in light of hypotension and hyperkalemia. To be reevaluated by cardiology/nephrology for reinitiation in the future * Lower extremity ulcer-managed by wound care. * Hyperlipidemia continue statin Brief hospital course Mr. Hensley is a 63 year old M with a known history of chronic kidney disease m anaged by Dr. Quinteros nephrology. Patient was in baseline state of health until a month prior to presentation started experiencing loss of appetite associated with nausea. Patient also had associated abdominal discomfort along with bloating and associated 3-4 watery diarrhea a day. Over time he got progressively weaker and has not been able to eat or drink much. With worsening symptoms he was advised for gallbladder ultrasound scheduled for today by PCP. However this morning he was so weak and fatigued that he stumbled on the way to the bathroom. He subsequently presented to [place] [facility]. Initial work-up was consistent with hyperkalemia 6.8/acute renal failure creatinine of 3 and hypotension with pressures in 60. Patient was started on hyperkalemia protocol, received crystalloid and subsequently nephrology was consulted. His potassium recheck was higher at 7.8. Emergent HD catheter was placed and subsequently hospitalist service at [facility] was consulted for transferring patient for need of urgent hemodialysis. Patient transferred from [facility] to [facility] via ground ambulance. Signout was obtained from Dr. Fortino Contreras ER physician on phone. At the time of evaluation patient is alert and oriented. He was able to answer most of the questions. He was able to endorse history as above. He denies recent NSAID intake, dysuria, hematuria, weight loss, bloody emesis or bloody stool. He further denies rash, joint pain, headache, photophobia. He does endorse to fever and chills early this morning. 03/08-patient overnight remained on pressors with crystalloid challenges to maintain map at goal. Post hemodialysis potassium improved to 4.8. Satisfactory urine output. Weaning vasopressors. Multiple runs of V. tach last night with spontaneous defibrillator discharge. Creatinine 2.3 BUN 35. Continue monitor renal function. Nephrology on board. 03/09- Doing a lot better. off pressors, Cr stable now down to 1.9. K uptrending at 5.6. Nehrology on board, good urine output. Phosphorus 1.5. No fever chills or telemetry events. 03/10-patient complains of severe nausea after Kayexalate administration for hyperkalemia. Potassium down to 5.4. Creatinine improving to 1.7. Complains of nausea. Systolics around 90s but off pressors. Ongoing physical therapy. Is slightly lightheaded. Complains of right knee pain 8 out of 10. Tolerating diet. No family at bedside 03/11-patient doing well. No overnight events. Creatinine downtrending however potassium up to 6.1. Resin exchange binder for hyperkalemia as per nephrology. Systolic stable. Diuresing well. Creatinine at 1.7 near baseline. Acidosis being managed by nephrology. Anticipate discharge in 24 to 48 hours pending improvement in renal function/potassium and HD catheter removal 03/12-patient clinically improved. Potassium down to 4.7. Creatinine 1.7. Nephrology recommends discharge with outpatient follow-up with nephrology/repeat BMP. Continue additional 2 doses of prednisone in light of gout flare. Arthrocentesis negative Gram stain/culture. Consistent with inflammatory tap. Patient now feels at baseline. Discharge instructions below. Discharge diagnosis: . - Time Spent with Patient Total time spent providing and/or coordinating discharge services: Greater than 30 minutes Medical - DS: Exam - Constitutional Vitals: Vital Signs Temp Pulse Resp BP BP Pulse Ox 03/12/19 07:59 68 20 95 03/12/19 07:00 97.7 F 82 18 111/70 98 03/12/19 02:47 98.0 F 68 20 105/59 95 03/11/19 23:32 98.4 F 77 20 113/71 98 03/11/19 19:09 98.0 F 89 20 132/65 97 03/11/19 15:00 98.2 F 74 12 116/78 95 03/11/19 11:45 97.8 F 70 16 107/73 95 Intake and Output 03/11/19 03/12/19 03/12/19 21:59 05:59 13:59 Intake Total 983 500 Output Total 690 425 Balance 293 75 Intake: IV 583 Sodium Chloride 0.9% 1,000 ml @ 583 100 mls/hr IV .Q10H [facility] Rx#: [id number] Oral 400 500 Output: Void Amount 690 425 Other: Urine Appearance Clear Clear Clear Urine Color Bright Yellow Bright Yellow Bright Yellow Urine Odor Strong Weight 299 lb 8 oz Medical - DS: Data Labs on day of discharge: Labs from last 24 hours 03/12/19 03/12/19 03/11/19 08:26 08:26 17:45 WBC 7.7 RBC 4.10 L Hgb 11.5 L Hct 34.9 L MCV 85.0 MCH 28.1 MCHC 33.0 RDW 14.9 H Plt Count 232 MPV 8.7 Total Counted 100 Seg Neutrophils % 84 H Band Neutrophils % Not Reportable Lymphocytes % 10 L Monocytes % (Manual) 5 Nucleated RBCs 3 H Reactive Lymphocytes 1 Platelet Estimate Normal RBC Morphology Normal Sodium 140 136 Potassium 4.7 5.7 H Chloride 110 H 107 Carbon Dioxide 18 L 16 L Anion Gap 12.0 13.0 BUN 42 H 37 H Creatinine 1.7 H 1.7 H GFR Calculation 42 42 Glucose 142 H 176 H Uric Acid 2.8 Calcium 7.1 L 6.8 L Phosphorus 2.2 L Magnesium 1.5 L Total Bilirubin 0.2 Direct Bilirubin < 0.2 GGT 46 AST 16 ALT 12 Alkaline Phosphatase 72 Lactate Dehydrogenase 206 Total Protein 6.9 Albumin 3.6 Globulin 3.3 Albumin/Globulin Ratio 1.1 Triglycerides 51 Medical - DS: A/P - Patient/Caregiver Discharge Instructions Activity: increase activity as tolerated Diet: Renal/Consistent Carbs Additional Instructions: Follow-up with nephrology Dr. Quinteros in 7 to 10 days with outpatient BMP in 5 days Hold SERGEY inhibitor/spironolactone due to propensity for hypotension/hyperkalemia until such time cleared by contract administration specialist and solidworks drafter Follow-up primary care physician in 7 to 10 days Follow-up contract administration specialist in 7 to 10 days Continue oral steroid for additional 48 hours Prescriptions: predniSONE [Prednisone] 40 mg PO [facility] #4 tab Transmission Status: Pending to [facility] - Problem Maintenance (1) Acute renal failure Status: Acute Comment: KENDY, improving, todays labs pending. Hyperkalemia. Received Lokelma yesterday. Labs pending. HTN. controlled. Can d/c if labs ok with a followup in 1-2 weeks. Qualifiers: Acute renal failure type: with acute tubular necrosis Qualified Code(s): N17.0 - Acute kidney failure with tubular necrosis - Follow up Plan Disposition: Home, Self-Care Prognosis: Fair Rehab Potential: Fair I certify that the patient requires SNF services: No Overall status at discharge: patient is progressing back to baseline Medical - DS: Qual - VTE Deep Vein Thrombosis/Pulmonary Embolism Present on Admission: No
== END 2019-03-12 15:45 | disposition home or self-care (01) | DRG 682 ==
LOC: ICU 16:30 → MEDSUR 03-10 15:27
PROVIDERS: ADMIT Internal Medicine; ATTEND Internal Medicine